=== PATIENT | female | born 1995 | race African-American/Black ===

== ENCOUNTER 2019-09-16 06:25 | Emergency (ER) | payer MEDICAID, OTHER ==
[~2019-09-16] VITALS: Ht 160 cm; Wt 57.0 kg
[2019-09-16 07:21] LABS: BASOPHILS % 0.7 % (0.0-2.0); EOSINOPHILS % 1.3 % (0.0-5.0); HEMATOCRIT. 31.9 % (36.0-48.0); HEMOGLOBIN. 10.3 g/dL (12.0-16.0); LYMPHOCYTES % 26.3 % (20.0-50.0); MEAN CORPUSCULAR HEMOGLOBIN 27.3 pg (28.0-32.0); MEAN CORPUSCULAR VOLUME 84.7 fL (81.0-99.0); MONOCYTES % 6.5 % (2.0-8.0); NEUTROPHILS % 65.2 % (40.0-76.0); RED BLOOD CELL COUNT 3.77 mill/uL (4.2-5.4)
[2019-09-16 07:28] LABS: CHLORIDE 107 mEq/L (98-107)
[2019-09-16 09:17] LABS: MEAN PLATELET VOLUME 13.7 fl (7.4-10.4); PLATELET 164 x1000/uL (130-400)
[2019-09-16 09:18] LABS: PLATELET ESTIMATE NORMAL
[2019-09-16 09:40] VITALS: BP 111/73
== END 2019-09-16 09:42 | disposition home or self-care (01) ==
LOC: ER 06:25
DX: R00.2 Palpitations (principal); I51.9 Heart disease, unspecified; D64.9 Anemia, unspecified; Z95.0 Presence of cardiac pacemaker; Z95.4 Presence of other heart-valve replacement
CPT/HCPCS: 36415; 71045; 80053; 83880; 84484; 85025; 93005; 99284